=== PATIENT | male | born 1965 | race Caucasian/White ===

== ENCOUNTER 2024-03-02 04:07 | Emergency (ER) | payer BC, SELFPAY ==
[2024-03-02 04:08] VITALS: BP 170/98
[2024-03-02 04:59] VITALS: BMI 32.3
--- NOTE | 2024-03-02 05:18 | ED.GENMED ---
History of Present Illness
<Barbara Cary MD, Resident - Last Filed: 03/02/24 07:18>
General
Chief Complaint: Abdominal Pain
Source: patient
Exam Limitations: none
Time Seen by Provider: 03/02/24 04:19
Nursing documentation reviewed up to this point in time: agreed with
History of Present Illness
History of Present Illness:
Hx of asthma and HTN, who presents to the ED with severe, constant upper abdominal wall pain with abdominal wall rigidity that woke him up from sleep at 2:30am tonight. He treated with GasX and pain resolved after 2 hours. He had a dinner of sloppy
[employer]. Symptoms resolved while waiting in the ED. This is the third episode in 1 year. Other episodes resolved after an hour with GasX or no treatment at all. He reports no nausea/vomiting, chest pain, diaphoresis, radiation to back or elsewhere. No
history of pancreatitis, peptic ulcers or gall stones.
Past History
<Barbara Cary MD, Resident - Last Filed: 03/02/24 07:18>
Past History
ED Past Medical History: Asthma and HTN
ED Past Surgical History: Other (dental)
Patient has exhibited threatening behavior?: No
Social History
Tobacco: Non-smoker
Alcohol: Occasional
Drug: None
Personal:
Living: with family
Employment: Not employed
Family History
Family History: Cancer (father: lung cancer in 20s)
Review of Systems
<Barbara Cary MD, Resident - Last Filed: 03/02/24 07:18>
Review of Systems
Constitutional: Denies fever
Respiratory: Denies trouble breathing
Cardiac: Denies chest pain
ABD/GI: Reports other (no difficulty swallowing or reflux); Denies abdominal pain, nausea or vomiting
: Denies dysuria, frequency, incontinence or difficulty voiding
Phy Exam
<Barbara Cary MD, Resident - Last Filed: 03/02/24 07:18>
General Physical Exam
General Presentation: well appearing and no apparent distress
General age: appears stated age
General Skin: warm and dry
General Habitus: normal
General Mental: alert
ENT Exam
ENT Exam: EOMI
Eye Exam
Eye Exam: PERRL, EOMI and conjunctiva normal
Cardiovascular Exam
Cardiovascular Exam: regular rate/rhythm, no edema, no gallop and no murmur
Pulmonary Exam
Pulmonary Exam: lungs clear, no respiratory distress, no rales, no crackles, no rhonchi and no wheezing
Gastrointestinal Exam
Gastrointestinal Exam: normal bowel sounds, non tender, soft, no organomegaly, non distended and other (diastasis recti)
Course
<Barbara Cary MD, Resident - Last Filed: 03/02/24 07:18>
Orders/Labs/Results
Orders:
Orders
03/02/24 04:14
Electrocardiogram (*1) Urgent
Reason for Study: Abdominal Pain
EKG- Treatment ONCE
IV Insert/Care/Rem.- Treatment PRN
03/02/24 05:02
Complete Blood Count/With Diff Urgent
Comprehensive Metabolic Panel Urgent
Lipase Urgent
03/02/24 05:31
US Abdomen Complete/Upper Urgent
Comment:
Reason For Exam: acute severe upper abd pain
Abnormal Lab Results
03/02/24
05:02
Plt Count 107 L 10^3/uL
(130-400)
MPV 11.5 H fL
(7.4-10.4)
Abs Immat Gran (auto) 0.1 H 10^3/uL
(0-0.05)
Absolute Neuts (auto) 8.3 H 10^3/uL
(1.4-6.5)
Absolute Monos (auto) 0.7 H 10^3/uL
(0.1-0.6)
Neutrophils % 80.2 H %
(42.2-75.2)
Lymphocytes % 12.3 L %
(20.5-51.1)
BUN 28 H mg/dl
(9-20)
Glucose 106 H mg/dl
(70-99)
03/02/24 05:02
03/02/24 05:02
Vital Signs
Initial and Last Documented VS:
Initial Vital Signs
Pulse Resp BP Pulse Ox
68 18 170/98 100
03/02/24 04:08 03/02/24 04:08 03/02/24 04:08 03/02/24 04:08
Last Documented Vital Signs
Temp Pulse Resp BP Pulse Ox
98.1 F 69 13 119/81 96
03/02/24 05:37 03/02/24 05:30 03/02/24 05:30 03/02/24 05:30 03/02/24 05:30
Oleksandrlt;Jojo Mcneil, DO - Last Filed: 03/02/24 07:51>
Orders/Labs/Results
Orders:
Orders
03/02/24 04:14
Electrocardiogram (*1) Urgent
Reason for Study: Abdominal Pain
EKG- Treatment ONCE
IV Insert/Care/Rem.- Treatment PRN
03/02/24 05:02
Complete Blood Count/With Diff Urgent
Comprehensive Metabolic Panel Urgent
Lipase Urgent
03/02/24 05:31
US Abdomen Complete/Upper Urgent
Comment:
Reason For Exam: acute severe upper abd pain
Abnormal Lab Results
03/02/24
05:02
Plt Count 107 L 10^3/uL
(130-400)
MPV 11.5 H fL
(7.4-10.4)
Abs Immat Gran (auto) 0.1 H 10^3/uL
(0-0.05)
Absolute Neuts (auto) 8.3 H 10^3/uL
(1.4-6.5)
Absolute Monos (auto) 0.7 H 10^3/uL
(0.1-0.6)
Neutrophils % 80.2 H %
(42.2-75.2)
Lymphocytes % 12.3 L %
(20.5-51.1)
BUN 28 H mg/dl
(9-20)
Glucose 106 H mg/dl
(70-99)
03/02/24 05:02
03/02/24 05:02
Vital Signs
Initial and Last Documented VS:
Initial Vital Signs
Pulse Resp BP Pulse Ox
68 18 170/98 100
03/02/24 04:08 03/02/24 04:08 03/02/24 04:08 03/02/24 04:08
Last Documented Vital Signs
Temp Pulse Resp BP Pulse Ox
98.1 F 69 13 119/81 96
03/02/24 05:37 03/02/24 05:30 03/02/24 05:30 03/02/24 05:30 03/02/24 05:30
<Barbara Cary MD, Resident - Last Filed: 03/02/24 07:18>
MDM/Problems Addressed
Differential Diagnosis Includes:
peptic ulcer, billiary colic, ACS
MDM/Problems Addressed:
Symptoms had resolved at the time the patient was seen in ED. Normal physical exam. No distress. Will check CBC, CMP, abdominal ultrasound, EKG.
EKG is normal. CBC and CMP are unremarkable.
Abdominal ultrasound with multiple gall stones.
Patient is comfortable and completely pain free. Stable to be discharged home with outpatient follow up with general surgery
<Jojo Mcneil DO - Last Filed: 03/02/24 07:51>
*Radiology
Radiology exam reviewed: radiology read reviewed
*Pulse Oximetry
Patient hypoxic: no
*EKG
Interpreted by ED Provider?: Yes
Interpretation: normal
Comparison EKG: no changes (Unchanged from previous January 2023)
Rate: normal
Rhythm: sinus
[place]: normal axis
Interval: normal interval
QRS Pattern: normal QRS
Ischemia: no ischemia
*Critical Care Note
Total Time (30-74mins, 75-104mins- exclusive of procedures): Not Applicable
ED Attending Note
<Barbara Cary MD, Resident - Last Filed: 03/02/24 07:18>
-
Portions of this chart may have been created with voice recognition software.� Occasional wrong word or��sound alike� substitutions may have occurred due to the inherent limitations of voice recognition software.
<Jojo Mcneil DO - Last Filed: 03/02/24 07:51>
ED Attending Note
Patient seen and examined by attending physician: Yes
I performed a history and physical exam of patient and discussed management with resident, I reviewed resident's note and agree with documented findings and plan of care.: Yes
ED Attending Note:
This is a 58-year-old gentleman with history of hypertension, mild intermittent asthma who presents with abrupt onset of severe generalized upper abdominal pain that woke him from sleep this morning. Upper abdominal pain was nonradiating, severe in
nature accompanied with a sense of firmness of his upper abdomen and admits to feeling restless, unable to find a comfortable position. He took Gas-X without relief but pain eventually resolved after approximately 2 hours.
He admits to similar episodes of severe generalized upper abdominal pain that woke him from sleep approximately 5 months ago as well as 1 year ago. The similar episodes lasted approximately 1 hour and then resolved.
Currently comfortable and pain-free.
No previous abdominal surgeries.
He ate sloppy [employer] for dinner.
58-year-old gentleman appears his stated age, bright and alert, pleasant, appears in no acute distress. is accompanying.
Abdomen is soft, nondistended, without appreciable tenderness. Normoactive bowel sounds. No palpable masses.
History concerning for intermittent biliary colic, less likely small bowel obstruction, intussusception, gastritis, ACS.
EKG is unremarkable, unchanged from previous.
Labs are pending.
Will plan for abdominal ultrasound, assess for potential cholelithiasis.
03/02/2024 0700 AM
Labs are unremarkable.
Ultrasound shows gallstones with thickened wall concerning for potential cholecystitis but no evidence of biliary obstruction.
As patient remains pain-free and comfortable, normal laboratory studies, no evidence in the labs nor physical exam to suggest cholecystitis and I suspect his acute upper abdominal pain is biliary colic in nature.
Discussed importance of maintaining a strict low-fat/nonfat diet.
Will refer to general surgery for follow-up.
Return precautions discussed.
Discharge Plan
Departure
Patient Disposition: Home (Routine Discharge)
Date of Disposition: 03/02/24
Time of Disposition: 07:12
Patient with high blood pressure during this ER visit?: Yes
Condition: Good
Discharge Problem:
Cholelithiasis
Instructions: Gallstones ED, Abdominal pain in adults - Discharge instructions, Low-fat diet
Referrals:
Marty Cochran MD [Active] -
Cassandra Rodriguez CRNP [Family Provider] -
Activity Restrictions/Additional Instructions:
Please call to schedule follow up with general surgery shortly
Interventions
Interventions:
*General Assessment Last Done: 03/02/24 04:59
*Neglect/Abuse Screening Last Done: 03/02/24 04:59
ED- Fall Risk Assessment Last Done: 03/02/24 04:59
*ED COVID-19 Vaccine History Last Done: 03/02/24 04:59
HG-Cliqsg-Rtgxozjbka Assessment Last Done: 03/02/24 04:59
Discharge Date and Time
Print Language: SAUDI ARABIAN
[2024-03-02 05:19] VITALS: BP 143/86
[2024-03-02 05:30] VITALS: BP 119/81
[2024-03-02 05:43] LABS: % Basophils 0.2 % (0-2); % Eosinophils 0.4 % (0-6); % Immature Granulocytes 0.5 % (0-0.5); % Lymphocytes 12.3 % (20.5-51.1); % Monocytes 6.4 % (1.7-9.3); % Neutrophils 80.2 % (42.2-75.2); Absolute Immature Granulocytes 0.1 10^3/uL (0-0.05); Absolute Lymphocytes 1.3 10^3/uL (1.2-3.4); Absolute Monocytes 0.7 10^3/uL (0.1-0.6); Absolute Neutrophils 8.3 10^3/uL (1.4-6.5); Hematocrit 41.2 % (39.0-52.0); Hemoglobin 13.7 g/dL (13.0-18.0); Mean Corp Hgb Conc. 33.3 g/dL (33.0-37.0); Mean Corpuscular Hgb 27.1 pg (27.0-31.0); Mean Corpuscular Volume 81.6 fL (80.0-94.0); Mean Platelet Volume 11.5 fL (7.4-10.4); Nucleated Red Blood Cells % 0 % (-); Platelet Count 107 10^3/uL (130-400); Red Blood Cell Count 5.05 10^6/uL (4.70-6.10); Red Cell Dist. Width 13.3 % (11.5-14.5); White Blood Cell Count 10.4 10^3/uL (4.8-10.8)
[2024-03-02 05:48] LABS: ALT (SGPT) 23 U/L (0-50); AST (SGOT) 43 U/L (17-59); Albumin 4.4 g/dl (3.5-5.0); Alkaline Phosphatase 65 U/L (38-126); Blood Urea Nitrogen 28 mg/dl (9-20); Calcium 9.1 mg/dl (8.4-10.2); Carbon Dioxide 22 mmol/L (22-30); Chloride 106 mmol/L (98-107); Estimated Creatinine Clearance 123 ml/min; Glucose 106 mg/dl (70-99); Lipase 84 U/L (23-300); Potassium 4.3 mmol/L (3.5-5.1); Sodium 141 mmol/L (135-145); Total Bilirubin 0.7 mg/dl (0.2-1.3); Total Protein 6.8 g/dl (6.3-8.2); eGFR > 60.00
[2024-03-02 08:21] VITALS: BP 124/88
[2024-03-02 08:44] VITALS: BP 124/74
[2024-03-02 08:47] VITALS: BP 124/74
== END 2024-03-02 08:49 | disposition home or self-care (01) ==
LOC: EMR 04:07
PROVIDERS: EMERGENCY PHYSICIAN Emergency Medicine; FAMILY PHYSICIAN Nurse Practitioner Family
DX: K80.20 Calculus of gallbladder without cholecystitis without obstruction (principal); I10 Essential (primary) hypertension; J45.909 Unspecified asthma, uncomplicated
CPT/HCPCS: 99285; 76700; 80053; 83690; 85025; 93005

== ENCOUNTER 2024-03-27 06:32 | Day surgery (SDC) | payer BC, SELFPAY ==
[2024-03-27] VITALS (10 sets, daily range): BP systolic 25–180; BP diastolic 80–97; BMI 32.4
[2024-03-27] MEDS: NORMOSOL-R/PLASMALYTE-A 1000 IV (13:45)
[2024-03-27] MEDS: IC GREEN 2.5 MG IV (13:50)
[2024-03-27] MEDS: TYLENOL 1000 MG PO (13:52)
--- NOTE | 2024-03-27 16:02 | W.IMMPOSTOP ---
Surgical Immed Post Op Note
-
Primary Surgeon: Dimas
Assisting: Raina STONE, Flavio STONE
Pre-op Diagnosis: Biliary colic
Post-op Diagnosis: Chronic calculous cholecystitis
Procedure Performed: Robot assisted laparoscopic cholecystectomy
Anesthesia Type: GETA
Specimen / Cultures: Gallbladder
Estimated Blood Loss: 25cc
Complications: None immediate
Operative Findings: Floppy intrahepatic gallbladder with thickened fibrotic wall and scarring about the infundibulum, friable anterior wall of gallbladder avulsed near the fundus and stones spilled, maximally retrieved; oozing from liver bed
controlled with pressure and cautery; dilated cystic duct controlled with locking clips x2, and PDS endoloop for added security; 19fr alex drain to subhepatic space
--- NOTE | 2024-03-27 16:05 | OR.RPT ---
Addendum entered and electronically signed by Marty Cochran MD 03/27/24 18:00:
The assistance of Ann STONE and Aminta STONE was required due to the complexity of the procedure. During the procedure they assisted with retraction, resection, and closure of the wound.
Original Note:
Operative Report
Operative Report
Primary Surgeon: Dimas
Assisting: Raina STONE, Flavio STONE
Pre-op Diagnosis: Biliary colic
Post-op Diagnosis: Chronic calculous cholecystitis
Procedure Performed: Robot assisted laparoscopic cholecystectomy
Anesthesia Type: GETA
Specimen / Cultures: Gallbladder
Estimated Blood Loss: 25cc
Complications: None immediate
Operative Findings: Floppy intrahepatic gallbladder with thickened fibrotic wall and scarring about the infundibulum, friable anterior wall of gallbladder avulsed near the fundus and stones spilled, maximally retrieved; oozing from liver bed
controlled with pressure and cautery; dilated cystic duct controlled with locking clips x2, and PDS endoloop for added security; 19fr alex drain to subhepatic space
Date of Surgery:� 03/27/24
Indications: This 58M developed right upper quadrant pain. Work-up showed gallstones, normal liver enzymes and no ductal dilation. Laparoscopic cholecystectomy with robotic assist was elected.
Description of procedure: The patient was placed on the operating table in the supine position. General anesthesia was induced. A time-out was completed verifying correct patient, procedure, site, positioning, and special equipment prior to
beginning this procedure. An orogastric tube was placed. The abdomen was prepped and draped in the usual sterile fashion. A stab incision was made in left upper quadrant and the Veress needle was inserted. Proper position was confirmed by aspiration
and saline meniscus test. The abdomen was insufflated with carbon dioxide to a pressure of 12mmHg. The patient tolerated insufflation well.
A 8mm trocar was then inserted above the umbilicus. The laparoscope was inserted and the abdomen inspected. No injuries from initial trocar placement or Veress needle insertion were noted. Additional 8mm trocars were then inserted in the following
locations: two in the right lower quadrant and to the left of the umbilicus and just above. The abdomen was inspected and no abnormalities were found. The table was placed in the reverse Trendelenburg position with the right side up. The dome of the
gallbladder was grasped with an atraumatic grasper and retracted over the dome of the liver. The gallbladder was noted to be intrahepatic awith extensive wall thickening and fibrosis, particularly around the infundibulum. The infundibulum was then
grasped with an atraumatic grasper and retracted toward the right lower quadrant. This maneuver exposed Calot�s triangle. The peritoneum overlying the gallbladder infundibulum was then incised and the cystic duct and cystic artery identified and
circumferentially dissected so that a clear view of the liver was achieved through a window between the cystic duct an cystic artery. During the dissection the anterior wall of the gallbladder avulsed and stones spilled. The stones were maximally
retrieved.
The cystic duct was then doubly clipped and divided. An roofer assistant 5mm port was placed and a PDS endoloop was used to secure the cystic duct stump for added security. The cystic artery was controlled with bipolar and divided. The gallbladder was then
dissected from its peritoneal attachments by electrocautery. The gallbladder was removed using an endoscopic retrieval bag placed through the umbilical port. The gallbladder was passed off the table as a specimen. The gallbladder fossa was
thoroughly irrigated with sterile saline. There was no evidence of bleeding from the gallbladder fossa or cystic artery or leakage of the bile from the cystic duct stump. There was a slight ooze from the fossa that was controlled with cautery and
direct pressure. A 19fr alex drain was then placed into the subhepatic space and brought out through the lateral port site and secured to the skin with 2-0 nylon suture. The umbilical trocar site was closed at the fascial level with 2-0 PDS.
Secondary trocars were removed under direct vision and noted to be hemostatic. The abdomen was allowed to collapse. The skin was closed with subcuticular sutures of 4-0 monocryl and topical skin adhesive. The orogastric tube was removed.
The patient tolerated the procedure well and was taken to the postanesthesia care unit in stable condition.
[2024-03-27] MEDS: DILAUDID 0.5 MG IV (17:05)
[2024-03-27] MEDS: ROXICODONE 5 MG PO (18:13)
== END 2024-03-27 19:04 | disposition home or self-care (01) ==
LOC: SDS 06:32
PROVIDERS: ATTENDING PHYSICIAN Surgery
DX: K80.10 Calculus of gallbladder with chronic cholecystitis without obstruction (principal)
CPT/HCPCS: 47562; 88304

== ENCOUNTER → 2025-02-05 08:37 | Outpatient (REF) | payer BC, SELFPAY | LOC: MRI 3T 08:37 | PROVIDERS: ATTENDING PHYSICIAN Surgery; FAMILY PHYSICIAN Nurse Practitioner Family | DX: R97.20 Elevated prostate specific antigen [PSA] (principal) | CPT/HCPCS: 72197; A9575 ==